=== PATIENT | male | born 1945 | race African-American/Black ===

== ENCOUNTER → 2017-06-11 | Outpatient (CLI) | payer OTHER, BC ==
[~2017-06-11] MED LIST: MOTRIN600 MG PO; PERCOCET 5/31 TABLET PO
== END | disposition home or self-care (01) ==
LOC: NUC 10:05
DX: J98.4 Other disorders of lung (principal)
CPT/HCPCS: 71020; 78582; A9540; A9567

== ENCOUNTER 2017-09-30 06:20 | Day surgery (SDC) | payer OTHER, BC ==
[~2017-09-30] VITALS: Ht 182.9 cm; Wt 100.7 kg
[~2017-09-30 06:20] MED LIST changes: +ANORO ELLIPTA1 EACH IH; +FLONASE16 G1 BOTH NARES; +PROTONIX40 MG PO; +REVATIO20 MG PO; +TENORMIN100 MG PO; +ZESTORETIC 10-1 EAC1 PO; +ZOCOR20 MG PO
[2017-09-30] MEDS ORDERED: LO-DOSE ASPIRIN81 M1 PO (07:03)
[2017-09-30 07:04] VITALS: BP 115/72
[2017-09-30] MEDS ORDERED: PERCOCET 5/31 TABLET PO (10:07)
[2017-09-30] MEDS ORDERED: ULTRAM50 MG PO (10:12)
[2017-09-30 10:31] VITALS: BP 156/77
[2017-09-30 11:35] VITALS: BP 136/82
[2017-09-30 13:39] VITALS: BP 182/87
== END 2017-09-30 13:35 | disposition home or self-care (01) ==
LOC: SDC 06:20
PROC: 0FT44ZZ Resection of Gallbladder, Percutaneous Endoscopic Approach (ICD-10-PCS; principal; 2017-09-30)
DX: K80.12 Calculus of gallbladder with acute and chronic cholecystitis without obstruction (principal); R11.2 Nausea with vomiting, unspecified; I10 Essential (primary) hypertension; K21.0 Gastro-esophageal reflux disease with esophagitis; J44.9 Chronic obstructive pulmonary disease, unspecified; E78.00 Pure hypercholesterolemia, unspecified; R73.03 Prediabetes; Z87.891 Personal history of nicotine dependence
CPT/HCPCS: 88304; J0131; J0330; J1100; J2405; J2710; J3010; S0074